=== PATIENT | female | born 1975 | race Caucasian/White ===

== ENCOUNTER 2017-12-05 21:44 | Emergency (ER) | payer OTHER ==
[~2017-12-05] VITALS: Ht 152.4 cm; Wt 65.3 kg
[2017-12-06] MEDS ORDERED: METAFOLBIC TAB1 EACH PO (01:30)
[2017-12-06] MEDS ORDERED: MEDROL8 MG PO (01:30)
== END 2017-12-06 01:38 | disposition home or self-care (01) ==
LOC: ER 21:44
DX: G51.0 Bell's palsy (principal)